=== PATIENT | female | born 1935 | race Caucasian/White ===

== ENCOUNTER 2018-01-12 12:15 | Emergency (ER) | payer MEDICARE ==
[2018-01-12] MEDS ORDERED: 0.9 % SODIUM CHLORIDE 1,000 ML IV ONE (13:01)
[2018-01-12 13:05] LABS: eGFR (African) > 60; eGFR (Non-African) > 60
[2018-01-12 13:08] LABS: BASOPHILS % 0.6 (0.0-1.5); EOSINOPHILS % 2.2 % (0.0-6.8); MEAN CORPUSCULAR HEMOGLOBIN 30.3 pg (28.0-34.0); MEAN CORPUSCULAR VOLUME 93.3 fl (80.0-100.0); MONOCYTES % 5.3 % (0.0-11.0); NEUTROPHILS # 2.8 # k/uL (1.4-7.7)
--- NOTE | 2018-01-12 14:56 | ED Physician Documentation ---
GI Bleed - HISTORIAN Historian: patient - HPI Stated Complaint: left hand weakness Chief Complaint: Weakness Onset: other (2 weeks ago ) Timing: sudden onset Severity: mild Further Comments: yes (She states she went on a hiking trip in [place] and she notes shortly after she had weakness on the left side. She states at times she will drop thing she is holding on the left (she is left handed) and she at times has weakness she feels on her left face although she denies any facial droop or slurred speech. She does feel " more forgetful") - PAST HX Allergies/Adverse Reactions: Allergies Allergy/AdvReac Type Severity Reaction Status Date / Time No Known Allergies Allergy Unverified 01/12/18 12:30 Home Medications: Ambulatory Orders Medication Instructions Recorded NK [NK] 01/12/18 - VITAL SIGNS Vital Signs: Vital Signs Temp Pulse Resp BP Pulse Ox 98.2 F 55 L 14 178/60 99 01/12/18 12:20 01/12/18 16:08 01/12/18 16:08 01/12/18 16:08 01/12/18 12:20 ED Results Lab/Radiology - Lab Results Lab Results: Lab Results 01/12/18 01/12/18 01/12/18 15:05 15:05 12:45 WBC 4.70 K/ul K/ul (4.00-12.00) RBC 4.06 M/ul M/ul (3.90-5.20) Hgb 12.3 g/dL g/dL (12.0-16.0) Hct 37.9 % % (34.5-46.5) MCV 93.3 fl fl (80.0-100.0) MCH 30.3 pg pg (28.0-34.0) MCHC 32.4 g/dL g/dL (30.0-36.0) RDW 13.0 % % (11.3-14.3) Plt Count 187 K/mm3 K/mm3 (130-400) Neut % (Auto) 58.4 % % (39.0-79.0) Lymph % (Auto) 31.7 % % (16.0-50.0) Lamb % (Auto) 5.3 % % (0.0-11.0) Eos % (Auto) 2.2 % % (0.0-6.8) Baso % (Auto) 0.6 (0.0-1.5) Neut # (Auto) 2.8 # k/uL # k/uL (1.4-7.7) Lymph # (Auto) 1.5 # k/uL # k/uL (0.6-4.0) Lamb # (Auto) 0.2 # k/uL # k/uL (0.0-0.9) Eos # (Auto) 0.1 # k/uL # k/uL (0.0-0.6) Baso # (Auto) 0.0 # k/uL # k/uL (0.0-0.5) Reactive Lymphs % 1.7 % % (0.0-5.0) Reactive Lymphs # 0.1 # k/uL # k/uL (0.0-0.8) PT INR Sodium Potassium Chloride Carbon Dioxide BUN Creatinine Est GFR ( Amer) Est GFR (Non-Af Amer) Glucose Calcium Total Bilirubin AST ALT Alkaline Phosphatase Creatine Kinase Total Protein Albumin Urine Color Yellow (YELLOW) Urine Appearance Clear (CLEAR) Urine pH 6.0 (5.0 - 8.0) Ur Specific [place] 1.010 (1.010-1.030) Urine Protein Negative mg/dL mg/dL (NEGATIVE) Urine Ketones Negative mg/dL mg/dL (NEGATIVE) Urine Occult Blood Negative (NEGATIVE) Urine Nitrite Negative (NEGATIVE) Urine Bilirubin Negative (NEGATIVE) Urine Urobilinogen 0.2 Eu Eu (0.2-1.0) Ur Leukocyte Esterase Negative (NEGATIVE) Urine Glucose Negative mg/dL mg/dL (NEGATIVE) Opiates Screen Negative ng/mL ng/mL (<300) Oxycodone Screen Negative ng/mL ng/mL (<100) Methadone Screen Negative ng/mL ng/mL (<200) Ur Barbiturates Screen Negative ng.mL ng.mL (<200) Tricyclic Antidepress Negative ng/mL ng/mL (<300) Phencyclidine Screen Negative ng/mL ng/mL (< 25) Amphetamines Screen Negative ng/mL ng/mL (<500) U Methamphetamines Scrn Negative ng/mL ng/mL (<500) MDMA Negative ng/mL ng/mL (<500) Benzodiazepines Screen Negative ng/mL ng/mL (<150) Urine Cocaine Screen Negative ng/mL ng/mL (<150) U Cannabinoids Screen Negative ng/mL ng/mL (< 50) Ethyl Alcohol 01/12/18 01/12/18 12:45 12:45 WBC RBC Hgb Hct MCV MCH MCHC RDW Plt Count Neut % (Auto) Lymph % (Auto) [place] % (Auto) Eos % (Auto) Baso % (Auto) Neut # (Auto) Lymph # (Auto) Lamb # (Auto) Eos # (Auto) Baso # (Auto) Reactive Lymphs % Reactive Lymphs # PT 10.8 Seconds Seconds (9.4-11.6) INR 1.03 (0.9-1.2) Sodium 140 mmol/L mmol/L (136-145) Potassium 4.2 mmol/L mmol/L (3.5-5.1) Chloride 103 mmol/L mmol/L (98-107) Carbon Dioxide 30 mmol/L mmol/L (22-30) BUN 20 mg/dL H mg/dL (7-17) Creatinine 1.00 mg/dL mg/dL (0.52-1.04) Est GFR ( Amer) > 60 (60 - ) Est GFR (Non-Af Amer) > 60 (60 - ) Glucose 124 mg/dL H mg/dL (74-106) Calcium 9.4 mg/dL mg/dL (8.4-10.2) Total Bilirubin 0.2 mg/dL mg/dL (0.2-1.3) AST 23 U/L U/L (15-46) ALT 33 U/L U/L (13-69) Alkaline Phosphatase 55 U/L U/L (38-126) Creatine Kinase 30 U/L U/L (30-135) Total Protein 7.0 g/dL g/dL (6.3-8.2) Albumin 4.3 g/dL g/dL (3.5-5.0) Urine Color Urine Appearance Urine pH Ur Specific [place] Urine Protein Urine Ketones Urine Occult Blood Urine Nitrite Urine Bilirubin Urine Urobilinogen Ur Leukocyte Esterase Urine Glucose Opiates Screen Oxycodone Screen Methadone Screen Ur Barbiturates Screen Tricyclic Antidepress Phencyclidine Screen Amphetamines Screen U Methamphetamines Scrn MDMA Benzodiazepines Screen Urine Cocaine Screen U Cannabinoids Screen Ethyl Alcohol < 10.0 mg/dL mg/dL (0.0-10.0) - Radiology Radiology Impressions: Examination: CT head without contrast History: CT HEAD, FALL 3 DAYS AGO, HEAD STILL HURTS, PT STATES LEFT SIDED WEAKNESS AND HAS BEEN DROPPING THINGS FOR ABOUT A WEEK. PT ALSO STATES SHE HAS BEEN OFF BALANCE (Hx) Comparison exam: None available Technique: Noncontrast head CT protocol. Findings: Ventricles and sulci are mildly prominent. Cerebrocerebellar parenchyma demonstrates periventricular low attenuation consistent with small vessel disease. Focal low attenuation region involving the posterior right frontal lobe and right basal ganglia. No evidence for parenchymal hemorrhage. No evidence for mass or mass effect. No midline shift. No extra axial fluid collections. Partial visualization of the paranasal sinuses, mastoid air cells, orbits, skull and scalp without gross irregularity. Impression: Age related changes. 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 No acute appearing parenchymal process. No hemorrhage. Correlation with older exams recommended to confirm the stability of the presumed age related parenchymal changes and old parenchymal infarcts. Electronically signed on Jan 12, 2018 1:42:27 PM CDT by: Hakeem Sabillon - Orders Orders: ED Orders Category Date Time Status Place IV Lock 1T Care 01/12/18 12:[address] BRAIN W/O CONTRAST Stat Exams 01/12/18 Ordered ALCOHOL MEDICAL USE ONLY Routine Lab 01/12/18 12:45 Completed CBC/PLATELET/DIFF Stat Lab 01/12/18 12:45 Completed CMP Routine Lab 01/12/18 12:45 Completed CREATINE KINASE Routine Lab 01/12/18 12:45 Completed DRUG SCREEN URINE MEDICAL ONLY Routine Lab 01/12/18 15:05 Completed PT-INR Routine Lab 01/12/18 12:45 Completed URINALYSIS Routine Lab 01/12/18 15:05 Completed 0.9 % Sodium Chloride [Normal Saline] 1,000 ml Med 01/12/18 13:01 Discontinued IV .STK-MED 0.9 % Sodium Chloride [Normal Saline] 1,000 ml Med 01/12/18 12:30 Discontinued IV Q10H EKG WITH COMPARISON Stat Ther 01/12/18 Ordered Abdominal Pain Physical Exam - Physical Exam Vital Signs: Vital Signs Temp Pulse Resp BP Pulse Ox 98.2 F 55 L 14 178/60 99 01/12/18 12:20 01/12/18 16:08 01/12/18 16:08 01/12/18 16:08 01/12/18 12:20 Discharge Clincal Impression: Weakness Referrals: Primary Doctor,No [Primary Care Provider] - 2 Days Comments: 1. Increase fluids 2. See PCP - ANUSHA for work up on weakness 3. Return to ER for any added concerns Condition: Stable Disposition: 01 HOME, SELF-CARE Decision to Admit: NO Date of Decison to Admit: 01/12/18 Decision Time: 15:28
[2018-01-12 15:17] LABS: APPEARANCE,URINE CLEAR (CLEAR); CANNABINOIDS NEGATIVE ng/mL (< 50); COLOR,URINE YELLOW (YELLOW); METHYLENEDIOXYMETHAMPHETAMINE NEGATIVE ng/mL (<500); OCCULT BLOOD,URINE NEGATIVE (NEGATIVE); UROBILINOGEN URINE 0.2 Eu (0.2-1.0)
[2018-01-12] MEDS: 0.9 % SODIUM CHLORIDE 1,000 ML IV SCH (16:06)
[2018-01-12 16:10] VITALS: BP 178/60
--- NOTE | 2018-01-12 16:30 | ED Physician Documentation ---
General Adult - HISTORIAN Historian: patient - HPI Stated Complaint: left hand weakness Chief Complaint: Weakness Onset: other (2 weeks ago ) Timing: still present Severity: mild Further Comments: yes (she states that around 2 weeks ago she went on a hiking trip in [place] and around that time she noticed she had some weakness on the left side. She states that she has increased weakness with left hand. She states that she has even dropped things with her left hand. She states she is left handed. She also reports at times feeling her left face is weak. Denies any facial droop or slurred speech She has no drooling. She also states she has some increased forgetfullness. She states that she has fallen a few times with no reason. Most recent last week. She denies any LOC. She denies any noted or observed seizure activity) Last known Well Code/Unknown Code: Unknown - ROS CONST: no problems EYES/ENT: none CVS/RESP: none GI/: none MS/SKIN/LYMPH: denies: rash NEURO/PSYCH: difficulty walking. denies: headache, fainting, dizziness, difficulty with speech - PAST HX Past History: none Immunizations: UTD Allergies/Adverse Reactions: Allergies Allergy/AdvReac Type Severity Reaction Status Date / Time No Known Allergies Allergy Unverified 01/12/18 12:30 Home Medications: Ambulatory Orders Medication Instructions Recorded NK [NK] 01/12/18 - SOCIAL HX Smoking History: non-smoker Alcohol Use: none Drug Use: none - FAMILY HX Family History: No - VITAL SIGNS Vital Signs: Vital Signs Temp Pulse Resp BP Pulse Ox 98.2 F 55 L 14 178/60 99 01/12/18 12:20 01/12/18 16:08 01/12/18 16:08 01/12/18 16:08 01/12/18 12:20 - REVIEWED ASSESSMENTS Nursing Assessment Reviewed: Yes Vitals Reviewed: Yes Progress - Progress Progress: 1330: in room no complaints DG 1545: Results discussed and plan she is agreeable. DG ED Results Lab/Radiology - Lab Results Lab Results: Lab Results 01/12/18 01/12/18 01/12/18 15:05 15:05 12:45 WBC 4.70 K/ul K/ul (4.00-12.00) RBC 4.06 M/ul M/ul (3.90-5.20) Hgb 12.3 g/dL g/dL (12.0-16.0) Hct 37.9 % % (34.5-46.5) MCV 93.3 fl fl (80.0-100.0) MCH 30.3 pg pg (28.0-34.0) MCHC 32.4 g/dL g/dL (30.0-36.0) RDW 13.0 % % (11.3-14.3) Plt Count 187 K/mm3 K/mm3 (130-400) Neut % (Auto) 58.4 % % (39.0-79.0) Lymph % (Auto) 31.7 % % (16.0-50.0) [place] % (Auto) 5.3 % % (0.0-11.0) Eos % (Auto) 2.2 % % (0.0-6.8) Baso % (Auto) 0.6 (0.0-1.5) Neut # (Auto) 2.8 # k/uL # k/uL (1.4-7.7) Lymph # (Auto) 1.5 # k/uL # k/uL (0.6-4.0) [place] # (Auto) 0.2 # k/uL # k/uL (0.0-0.9) Eos # (Auto) 0.1 # k/uL # k/uL (0.0-0.6) Baso # (Auto) 0.0 # k/uL # k/uL (0.0-0.5) Reactive Lymphs % 1.7 % % (0.0-5.0) Reactive Lymphs # 0.1 # k/uL # k/uL (0.0-0.8) PT INR Sodium Potassium Chloride Carbon Dioxide BUN Creatinine Est GFR ( Amer) Est GFR (Non-Af Amer) Glucose Calcium Total Bilirubin AST ALT Alkaline Phosphatase Creatine Kinase Total Protein Albumin Urine Color Yellow (YELLOW) Urine Appearance Clear (CLEAR) Urine pH 6.0 (5.0 - 8.0) Ur Specific [place] 1.010 (1.010-1.030) Urine Protein Negative mg/dL mg/dL (NEGATIVE) Urine Ketones Negative mg/dL mg/dL (NEGATIVE) Urine Occult Blood Negative (NEGATIVE) Urine Nitrite Negative (NEGATIVE) Urine Bilirubin Negative (NEGATIVE) Urine Urobilinogen 0.2 Eu Eu (0.2-1.0) Ur Leukocyte Esterase Negative (NEGATIVE) Urine Glucose Negative mg/dL mg/dL (NEGATIVE) Opiates Screen Negative ng/mL ng/mL (<300) Oxycodone Screen Negative ng/mL ng/mL (<100) Methadone Screen Negative ng/mL ng/mL (<200) Ur Barbiturates Screen Negative ng.mL ng.mL (<200) Tricyclic Antidepress Negative ng/mL ng/mL (<300) Phencyclidine Screen Negative ng/mL ng/mL (< 25) Amphetamines Screen Negative ng/mL ng/mL (<500) U Methamphetamines Scrn Negative ng/mL ng/mL (<500) MDMA Negative ng/mL ng/mL (<500) Benzodiazepines Screen Negative ng/mL ng/mL (<150) Urine Cocaine Screen Negative ng/mL ng/mL (<150) U Cannabinoids Screen Negative ng/mL ng/mL (< 50) Ethyl Alcohol 01/12/18 01/12/18 12:45 12:45 WBC RBC Hgb Hct MCV MCH MCHC RDW Plt Count Neut % (Auto) Lymph % (Auto) [place] % (Auto) Eos % (Auto) Baso % (Auto) Neut # (Auto) Lymph # (Auto) [place] # (Auto) Eos # (Auto) Baso # (Auto) Reactive Lymphs % Reactive Lymphs # PT 10.8 Seconds Seconds (9.4-11.6) INR 1.03 (0.9-1.2) Sodium 140 mmol/L mmol/L (136-145) Potassium 4.2 mmol/L mmol/L (3.5-5.1) Chloride 103 mmol/L mmol/L (98-107) Carbon Dioxide 30 mmol/L mmol/L (22-30) BUN 20 mg/dL H mg/dL (7-17) Creatinine 1.00 mg/dL mg/dL (0.52-1.04) Est GFR ( Amer) > 60 (60 - ) Est GFR (Non-Af Amer) > 60 (60 - ) Glucose 124 mg/dL H mg/dL (74-106) Calcium 9.4 mg/dL mg/dL (8.4-10.2) Total Bilirubin 0.2 mg/dL mg/dL (0.2-1.3) AST 23 U/L U/L (15-46) ALT 33 U/L U/L (13-69) Alkaline Phosphatase 55 U/L U/L (38-126) Creatine Kinase 30 U/L U/L (30-135) Total Protein 7.0 g/dL g/dL (6.3-8.2) Albumin 4.3 g/dL g/dL (3.5-5.0) Urine Color Urine Appearance Urine pH Ur Specific [place] Urine Protein Urine Ketones Urine Occult Blood Urine Nitrite Urine Bilirubin Urine Urobilinogen Ur Leukocyte Esterase Urine Glucose Opiates Screen Oxycodone Screen Methadone Screen Ur Barbiturates Screen Tricyclic Antidepress Phencyclidine Screen Amphetamines Screen U Methamphetamines Scrn MDMA Benzodiazepines Screen Urine Cocaine Screen U Cannabinoids Screen Ethyl Alcohol < 10.0 mg/dL mg/dL (0.0-10.0) - Orders Orders: ED Orders Category Date Time Status Place IV Lock 1T Care 01/12/18 12:[address] BRAIN W/O CONTRAST Stat Exams 01/12/18 Ordered ALCOHOL MEDICAL USE ONLY Routine Lab 01/12/18 12:45 Completed CBC/PLATELET/DIFF Stat Lab 01/12/18 12:45 Completed CMP Routine Lab 01/12/18 12:45 Completed CREATINE KINASE Routine Lab 01/12/18 12:45 Completed DRUG SCREEN URINE MEDICAL ONLY Routine Lab 01/12/18 15:05 Completed PT-INR Routine Lab 01/12/18 12:45 Completed URINALYSIS Routine Lab 01/12/18 15:05 Completed 0.9 % Sodium Chloride [Normal Saline] 1,000 ml Med 01/12/18 13:01 Discontinued IV .STK-MED 0.9 % Sodium Chloride [Normal Saline] 1,000 ml Med 01/12/18 12:30 Discontinued IV Q10H EKG WITH COMPARISON Stat Ther 01/12/18 Ordered General Adult Physical Exam - PHYSICAL EXAM GENERAL APPEARANCE: no distress EENT: eye inspection normal, ENT inspection normal, pharynx normal, no signs of dehydration, JULITO NECK: normal inspection RESPIRATORY: no resp distress, chest non-tender, breath sounds normal CVS: reg rate & rhythm, heart sounds normal, equal pulses, no murmur ABDOMEN: soft, no organomegaly, normal bowel sounds, no distension, non-tender SKIN: warm/dry, normal color EXTREMITIES: non-tender, normal range of motion, no evidence of injury NEURO: oriented X3, CN's nml as tested, motor nml, sensation nml, mood/affect nml, cognition normal Discharge Clincal Impression: Weakness Referrals: Primary Doctor,Sugar [Primary Care Provider] - 2 Days Comments: 1. Est PCP to discuss full work up - no treatment of b/p at this time due to falls 2. Return to ER for any concerns Condition: Stable Disposition: 01 HOME, SELF-CARE Decision to Admit: NO Date of Decison to Admit: 01/12/18 Decision Time: 15:50
--- NOTE | 2018-01-12 18:51 | Diagnostic Imaging Report ---
KRYSTINA FLAHERTY [facility] [address] [facility] [address] [place], [place]. [address] Report Submission Date: Jan 12, 2018 1:42:27 PM CDT Patient Study Name: TANNER ONEILL Date: Jan 12, 2018 1:13:55 PM CDT Modality Type: CT\SR Gender: F Description: CT BRAIN W/O CONTRAST : 37 Institution: [facility] Physician: KRYSTINA FLAHERTY Examination: CT head without contrast History: CT HEAD, FALL 3 DAYS AGO, HEAD STILL HURTS, PT STATES LEFT SIDED WEAKNESS AND HAS BEEN DROPPING THINGS FOR ABOUT A WEEK. PT ALSO STATES SHE HAS BEEN OFF BALANCE (Hx) Comparison exam: None available Technique: Noncontrast head CT protocol. Findings: Ventricles and sulci are mildly prominent. Cerebrocerebellar parenchyma demonstrates periventricular low attenuation consistent with small vessel disease. Focal low attenuation region involving the posterior right frontal lobe and right basal ganglia. No evidence for parenchymal hemorrhage. No evidence for mass or mass effect. No midline shift. No extra axial fluid collections. Partial visualization of the paranasal sinuses, mastoid air cells, orbits, skull and scalp without gross irregularity. Impression: Age related changes. 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 No acute appearing parenchymal process. No hemorrhage. Correlation with older exams recommended to confirm the stability of the presumed age related parenchymal changes and old parenchymal infarcts. Electronically signed on Jan 12, 2018 1:42:27 PM CDT by: Hakeem GARCIA
== END 2018-01-12 15:55 | disposition home or self-care (01) ==
LOC: ED 12:15
DX: R53.1 Weakness (principal)
CPT/HCPCS: 70450; 80053; 81002; 82550; 85025; 85610; 93005; G0480; G0481; J7030; 80320; 80377; 96365; 96366; 99284; S1016

== ENCOUNTER 2018-01-23 10:20 | Outpatient (CLI) | payer MEDICARE ==
--- NOTE | 2018-01-24 06:43 | Diagnostic Imaging Report ---
NATASHA MERCADO [facility] [address] [facility] [address] [address] Report Submission Date: Jan 23, 2018 6:51:41 PM CDT Patient Study Name: TANNER ONEILL Date: Jan 23, 2018 11:42:00 AM CDT Modality Type: US Gender: F Description: US CAROTID : 37 Institution: [facility] Physician: NATASHA MERCADO Carotid ultrasound CLINICAL HISTORY: Weakness. History of infarcts. TECHNIQUE: Real-time sonography of the carotid and vertebral arteries is performed in transverse and longitudinal views. Doppler interrogation and color flow imaging are additionally used. FINDINGS: There is echogenic plaque in the region of the right carotid bulb. Flow is identified in the external carotid artery but no flow is seen in the internal carotid artery on color flow imaging or Doppler interrogation. Right vertebral artery demonstrates normal cephalad flow. Examination left carotid system demonstrates flow in the internal and external carotid arteries. There is mild tortuosity of the carotid. Left internal carotid peak velocity measures 161 centimeters/second consistent with a degree of stenosis of 50-69%. Left vertebral artery demonstrates normal cephalad flow. 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 Electronically signed on Jan 23, 2018 6:51:41 PM CDT by: Percy GARCIA
== END 2018-01-23 12:41 ==
LOC: RAD 10:20
PROVIDERS: ATTEND Family Medicine
DX: I67.81 Acute cerebrovascular insufficiency (principal); I63.9 Cerebral infarction, unspecified
CPT/HCPCS: 93880

== ENCOUNTER 2019-06-17 08:49 | Outpatient (CLI) | payer OTHER | END 2019-06-17 08:54 | LOC: LAB 08:49 | PROVIDERS: ATTEND Nurse Practitioner | DX: Z13.29 Encounter for screening for other suspected endocrine disorder (principal) | CPT/HCPCS: 36415 ==